=== PATIENT | female | born 1965 | race American Indian/Alaskan Native ===

== ENCOUNTER 2017-06-06 22:05 | Emergency (ER) | payer SELFPAY ==
[2017-06-06] MEDS ORDERED: DELTASONE PO ONE (22:47)
[2017-06-06] MEDS ORDERED: VIBRAMYCIN PO ONE (22:47)
--- NOTE | 2017-06-06 23:30 | Emergency Department Report ---
ED Shortness of Breath HPI - General Chief Complaint: Adult Asthma Stated Complaint: ASTHMA Time Seen by Provider: 06/06/17 22:43 Source: patient, EMS Mode of arrival: Stretcher Limitations: No Limitations - History of Present Illness Initial Comments: Ms. Perkins is a very pleasant 51-year-old female with history of asthma. Last hospitalization October 2016 in [facility] her previous place of residence. She states that she has a severe asthma attack only 1-2 times per year mostly associated with weather change. She does smoke tobacco. She works in a mall. She was exposed to perfume which triggered her asthma. She received thrombolytic therapy per EMS. She feels well at this time. She had mild cough. She also had wheezing. All symptoms have improved. No previous history of intubation. No other medical illnesses. She did run out of albuterol and Flovent. Due to lack of insurance, she is unable to afford Flovent. MD Complaint: shortness of breath, cough -: Gradual Severity: mild Improves With: bronchodilators Known History Of: asthma Associated Symptoms: denies other symptoms Treatments Prior to Arrival: bronchodilator - Related Data Home Oxygen Therapy: No Home Medications Medication Instructions Recorded Confirmed Last Taken ALBUTEROL Inhaler 2 puff IH Q4H 06/06/17 06/06/17 Unknown Previous Rx's Medication Instructions Recorded Last Taken Type ALBUTEROL Inhaler [ProAir HFA 2 puff IH QID PRN #1 inhalation 06/06/17 Unknown Rx Inhaler] Doxycycline Hyclate [Doxycycline 100 mg PO Q12HR 10 Days #20 tab 06/06/17 Unknown Rx Hyclate TAB] Fluticasone (Nf) [Flovent 220 2 puff IH BID #1 puff 06/06/17 Unknown Rx MCG/PUFF HFA] Loratadine 10 mg PO DAILY #30 capsule 06/06/17 Unknown Rx predniSONE [Deltasone] 3 tab PO QDAY 5 Days #15 tab 06/06/17 Unknown Rx Allergies Allergy/AdvReac Type Severity Reaction Status Date / Time No Known Allergies Allergy Unverified 06/06/17 22:31 ED Review of Systems ROS: Stated complaint: ASTHMA Other details as noted in HPI Comment: All other systems reviewed and negative Respiratory: denies: cough Cardiovascular: denies: chest pain ED Past Medical Hx - Past Medical History Hx Asthma: Yes - Surgical History Additional Surgical History: Hysterectomy, Tubal Ligation, Right Achilles - Social History Smoking Status: Never Smoker Substance Use Type: None - Medications Home Medications: Home Medications Medication Instructions Recorded Confirmed Last Taken Type ALBUTEROL Inhaler 2 puff IH Q4H 06/06/17 06/06/17 Unknown History ALBUTEROL Inhaler [ProAir HFA 2 puff IH QID PRN #1 inhalation 06/06/17 Unknown Rx Inhaler] Doxycycline Hyclate [Doxycycline 100 mg PO Q12HR 10 Days #20 tab 06/06/17 Unknown Rx Hyclate TAB] Fluticasone (Nf) [Flovent 220 2 puff IH BID #1 puff 06/06/17 Unknown Rx MCG/PUFF HFA] Loratadine 10 mg PO DAILY #30 capsule 06/06/17 Unknown Rx predniSONE [Deltasone] 3 tab PO QDAY 5 Days #15 tab 06/06/17 Unknown Rx ED Physical Exam - General Limitations: No Limitations General appearance: alert, in no apparent distress - Head Head exam: Present: atraumatic, normocephalic - Eye Eye exam: Present: normal appearance - ENT ENT exam: Present: mucous membranes moist - Neck Neck exam: Present: normal inspection - Respiratory Respiratory exam: Present: normal lung sounds bilaterally. Absent: respiratory distress, wheezes, rales, rhonchi, chest wall tenderness, accessory muscle use, decreased breath sounds, prolonged expiratory - Cardiovascular Cardiovascular Exam: Present: regular rate, normal rhythm, normal heart sounds. Absent: systolic murmur, diastolic murmur, rubs, gallop - GI/Abdominal GI/Abdominal exam: Present: soft, normal bowel sounds. Absent: distended, tenderness, guarding, rebound - Extremities Exam Extremities exam: Present: normal inspection - Back Exam Back exam: Present: normal inspection - Neurological Exam Neurological exam: Present: alert, oriented X3 - Psychiatric Psychiatric exam: Present: normal affect, normal mood - Skin Skin exam: Present: warm, dry, intact, normal color. Absent: rash ED Course Vital Signs 06/06/17 06/06/17 22:26 23:05 Temperature 98.4 F Pulse Rate 82 Respiratory 18 Rate Blood Pressure 152/82 O2 Sat by Pulse 98 Oximetry ED Medical Decision Making - Medical Decision Making Ms. Rosales presents with mild asthma exacerbation. On pulmonary examination patient had clear breath sounds. No wheezing. No work of breathing or respiratory distress. Patient felt well after receiving nebulizer therapy via EMS. . She Received Prednisone and Doxycycline in the ED. Antibotics indicated indicated with history of tobacco use and possible COPD. She received a prescription for prednisone, Flovent, doxycycline, loratadine Albuterol. Critical care attestation.: If time is entered above; I have spent that time in minutes in the direct care of this critically ill patient, excluding procedure time. ED Disposition Clinical Impression: Acute asthma exacerbation Disposition: DC- TO HOME OR SELFCARE Is pt being admited?: No Does the pt Need Aspirin: No Condition: Stable Instructions: Asthma (ED), How to Stop Smoking (ED) Prescriptions: ALBUTEROL Inhaler [ProAir HFA Inhaler] 2 puff IH QID PRN #1 inhalation PRN Reason: Shortness Of Breath Doxycycline Hyclate [Doxycycline Hyclate TAB] 100 mg PO Q12HR 10 Days #20 tab Fluticasone (Nf) [Flovent 220 MCG/PUFF HFA] 2 puff IH BID #1 puff Loratadine 10 mg PO DAILY #30 capsule predniSONE [Deltasone] 3 tab PO QDAY 5 Days #15 tab Forms: Work/School Release Form(ED) Time of Disposition: 23:33
[2017-06-07 00:06] VITALS: BP 146/78
== END 2017-06-07 00:06 | disposition home or self-care (01) ==
LOC: ED 22:05
DX: J45.901 Unspecified asthma with (acute) exacerbation (principal)
CPT/HCPCS: 99283; J7512

== ENCOUNTER 2019-04-09 01:14 | Emergency (ER) | payer SELFPAY ==
[2019-04-09] MEDS ORDERED: IPRATROPIUM 0.02% NEBU 2.5 ML IH ONE (01:17)
[2019-04-09] MEDS ORDERED: ALBUTEROL 2.5 MG/3 ML NEBU IH ONE (01:17)
--- NOTE | 2019-04-09 01:53 | XRay Report ---
CHEST 1 VIEW INDICATION: resp distress. COMPARISON: 01/28/2018 FINDINGS: Support devices: None. Heart: Normal. Lungs/Pleura: Inhomogeneous density projecting over the medial right upper lung may be artifactual gi dunia slight patient rotation. Lung estrada are otherwise clear. No pleural abnormality. IMPRESSION: 1. Nonspecific ill-defined density projecting over the medial right upper lobe. This could be right u pper lobe atelectasis or infiltrate. Less likely, this could be artifact given slight patient rotatio n. CT would be useful to better characterize this. Signer Name: Aurelio Malik MD Signed: 04/09/2019 1:49 AM Workstation Name: [id number]
[2019-04-09 02:12] LABS: Basophils % (Auto) 0.4 % (0.0-1.8); Eosinophils # (Auto) 0.2 K/mm3 (0.0-0.4); Eosinophils % (Auto) 2.5 % (0.0-4.3); Hematocrit 38.7 % (30.3-42.9); Hemoglobin 12.5 gm/dl (10.1-14.3); Lymphocytes # (Auto) 1.4 K/mm3 (1.2-5.4); Lymphocytes % (Auto) 16.4 % (13.4-35.0); Mean Corpuscular HGB Conc 32 % (30-34); Mean Corpuscular Volume 85 fl (79-97); Monocytes # (Auto) 0.4 K/mm3 (0.0-0.8); Monocytes % (Auto) 4.4 % (0.0-7.3); Platelet Count 204 K/mm3 (140-440); Red Blood Count 4.57 M/mm3 (3.65-5.03); Red Cell Distribution Width 14.3 % (13.2-15.2)
[2019-04-09 02:32] LABS: BUN/Creatinine Ratio 11; Blood Urea Nitrogen 8 mg/dL (7-17); Calcium 9.3 mg/dL (8.4-10.2); Hemolysis Index 4
[2019-04-09 03:41] VITALS: BP 146/67
--- NOTE | 2019-04-09 04:44 | Emergency Department Report ---
ED Shortness of Breath HPI - General Chief Complaint: Dyspnea/Respdistress Stated Complaint: EMMA Time Seen by Provider: 04/09/19 01:22 Source: patient, EMS Mode of arrival: Stretcher Limitations: No Limitations - History of Present Illness Initial Comments: Patient is a 53-year-old F Citizen Of The [place] female with a past medical history of asthma and hypertension who is presenting with cough and increased shortness of breath for the last 2 days. Patient states she does not have her albuterol inhaler at home. She denies fevers or chills. Patient states the cough is nonproductive. She denies nausea vomiting diarrhea at this time. - Related Data Previous Rx's Medication Instructions Recorded Last Taken Type ALBUTEROL NEB's [Proventil 0.083% 2.5 mg IH TID PRN #30 neb 01/28/18 Unknown Rx NEBS] Albuterol Sulfate [Ventolin HFA] 2 puff IH Q4H PRN #1 hfa.aer.ad 01/28/18 Unknown Rx predniSONE [Deltasone] 40 mg PO QDAY 5 Days tab 01/28/18 Unknown Rx ALBUTEROL NEB's [Proventil 0.083% 5 mg IH TID PRN #20 neb 04/09/19 Unknown Rx NEBS] Albuterol INH(or & Nicu Only) 2 puff IH QID PRN #1 inhalation 04/09/19 Unknown Rx [ProAir HFA Inhaler] Azithromycin [Zithromax Z-DENNIS] 250 mg PO DAILY #6 tablet 04/09/19 Unknown Rx Benzonatate [Tessalon Perles] 100 mg PO Q8HR #10 capsule 04/09/19 Unknown Rx predniSONE [Deltasone] 20 mg PO QDAY #5 tab 04/09/19 Unknown Rx Allergies Allergy/AdvReac Type Severity Reaction Status Date / Time No Known Allergies Allergy Unverified 06/06/17 22:31 ED Review of Systems ROS: Stated complaint: EMMA Other details as noted in HPI Comment: All other systems reviewed and negative ED Past Medical Hx - Past Medical History Hx Asthma: Yes - Surgical History Additional Surgical History: Hysterectomy, Tubal Ligation, Right Achilles - Social History Smoking Status: Current Some Day Smoker Substance Use Type: None - Medications Home Medications: Home Medications Medication Instructions Recorded Confirmed Last Taken Type ALBUTEROL NEB's [Proventil 0.083% 2.5 mg IH TID PRN #30 neb 01/28/18 Unknown Rx NEBS] Albuterol Sulfate [Ventolin HFA] 2 puff IH Q4H PRN #1 hfa.aer.ad 01/28/18 Unknown Rx predniSONE [Deltasone] 40 mg PO QDAY 5 Days tab 01/28/18 Unknown Rx ALBUTEROL NEB's [Proventil 0.083% 5 mg IH TID PRN #20 neb 04/09/19 Unknown Rx NEBS] Albuterol INH(or & Nicu Only) 2 puff IH QID PRN #1 inhalation 04/09/19 Unknown Rx [ProAir HFA Inhaler] Azithromycin [Zithromax Z-DENNIS] 250 mg PO DAILY #6 tablet 04/09/19 Unknown Rx Benzonatate [Tessalon Perles] 100 mg PO Q8HR #10 capsule 04/09/19 Unknown Rx predniSONE [Deltasone] 20 mg PO QDAY #5 tab 04/09/19 Unknown Rx ED Physical Exam - General Limitations: No Limitations General appearance: alert, in distress (standing zachary tripod position leaning over bed) - Head Head exam: Present: atraumatic, normocephalic - Eye Eye exam: Present: normal appearance - ENT ENT exam: Present: mucous membranes moist - Neck Neck exam: Present: normal inspection - Respiratory Respiratory exam: Present: respiratory distress, wheezes. Absent: normal lung sounds bilaterally, rales, rhonchi - Cardiovascular Cardiovascular Exam: Present: regular rate, normal rhythm, normal heart sounds. Absent: systolic murmur, diastolic murmur, rubs, gallop - GI/Abdominal GI/Abdominal exam: Present: soft, normal bowel sounds. Absent: distended, tenderness, guarding, rebound - Extremities Exam Extremities exam: Present: normal inspection - Back Exam Back exam: Present: normal inspection - Neurological Exam Neurological exam: Present: alert, oriented X3 - Psychiatric Psychiatric exam: Present: normal affect, normal mood - Skin Skin exam: Present: warm, dry, intact, normal color. Absent: rash ED Course Vital Signs 04/09/19 04/09/19 04/09/19 01:20 01:24 01:25 Temperature 97.5 F L Pulse Rate 92 H Pulse Rate [ 96 H Bilateral] Respiratory Rate Respiratory 26 H Rate [Bilateral ] Blood Pressure 199/105 Blood Pressure [Left] O2 Sat by Pulse 93 Oximetry 04/09/19 03:41 Temperature Pulse Rate 101 H Pulse Rate [ Bilateral] Respiratory 20 Rate Respiratory Rate [Bilateral ] Blood Pressure Blood Pressure 146/67 [Left] O2 Sat by Pulse 100 Oximetry ED Medical Decision Making - Lab Data Result diagrams: 04/09/19 01:44 04/09/19 01:44 Lab Results 04/09/19 04/09/19 Range/Units 01:44 01:44 WBC 8.3 (4.5-11.0) K/mm3 RBC 4.57 (3.65-5.03) M/mm3 Hgb 12.5 (10.1-14.3) gm/dl Hct 38.7 (30.3-42.9) % MCV 85 (79-97) fl MCH 27 L (28-32) pg MCHC 32 (30-34) % RDW 14.3 (13.2-15.2) % Plt Count 204 (140-440) K/mm3 Lymph % (Auto) 16.4 (13.4-35.0) % Bladen % (Auto) 4.4 (0.0-7.3) % Eos % (Auto) 2.5 (0.0-4.3) % Baso % (Auto) 0.4 (0.0-1.8) % Lymph # 1.4 (1.2-5.4) K/mm3 Bladen # 0.4 (0.0-0.8) K/mm3 Eos # 0.2 (0.0-0.4) K/mm3 Baso # 0.0 (0.0-0.1) K/mm3 Seg Neutrophils % 76.3 H (40.0-70.0) % Seg Neutrophils # 6.3 (1.8-7.7) K/mm3 Sodium 143 (137-145) mmol/L Potassium 3.5 L (3.6-5.0) mmol/L Chloride 104.6 (98-107) mmol/L Carbon Dioxide 21 L (22-30) mmol/L Anion Gap 21 mmol/L BUN 8 (7-17) mg/dL Creatinine 0.7 (0.7-1.2) mg/dL Estimated GFR > 60 ml/min BUN/Creatinine Ratio 11 % Glucose 129 H (65-100) mg/dL Calcium 9.3 (8.4-10.2) mg/dL NT-Pro-B Natriuret Pep 88.14 (0-900) pg/mL - Radiology Data CHEST 1 VIEW INDICATION: resp distress. COMPARISON: 01/28/2018 FINDINGS: Support devices: None. Heart: Normal. Lungs/Pleura: Inhomogeneous density projecting over the medial right upper lung may be artifactual given slight patient rotation. Lung estrada are otherwise clear. No pleural abnormality. IMPRESSION: 1. Nonspecific ill-defined density projecting over the medial right upper lobe. This could be right upper lobe atelectasis or infiltrate. Less likely, this could be artifact given slight patient rotation. CT would be useful to better characterize this. - Medical Decision Making Patient received a Solu-Medrol and magnesium prior to arrival. Patient is continued here with hour-long neb treatment. Patient is has had improvement of her respiratory status. Lungs are clear she states she feels much better. Patient will be given albuterol nebs as well as albuterol inhaler for home and be started on a short course of steroids with azithromycin. Critical Care Time: Yes (30) Critical care attestation.: If time is entered above; I have spent that time in minutes in the direct care of this critically ill patient, excluding procedure time. ED Disposition Clinical Impression: COPD with exacerbation Disposition: DC-01 TO HOME OR SELFCARE Is pt being admited?: No Does the pt Need Aspirin: No Condition: Stable Instructions: Chronic Obstructive Pulmonary Disease (ED) Referrals: PRIMARY CARE, [Primary Care Provider] - 3-5 Days Time of Disposition: 04:42
== END 2019-04-09 05:43 | disposition home or self-care (01) ==
LOC: ED 01:14
DX: J44.1 Chronic obstructive pulmonary disease with (acute) exacerbation (principal)
CPT/HCPCS: 36415; 71045; 80048; 83880; 85025; 94644

== ENCOUNTER 2020-07-02 19:44 | Emergency (ER) | payer SELFPAY ==
[2020-07-02 20:28] VITALS: BP 183/109
--- NOTE | 2020-07-02 20:32 | Emergency Department Report ---
ED Back Pain/Injury HPI - General Chief Complaint: Extremity Problem,Nontraumatic Stated Complaint: LT LEG PAIN Source: patient Limitations: No Limitations - History of Present Illness Initial Comments: Patient is a 54-year-old -[place] female with a history of asthma presents to the ED with complaint of acute onset persistent severe low back pain that radiates to the left leg for the last 2 weeks, worse in the last 2 days. Patient states that she has been taking [id number] pain medications with no relief. Patient states that in the last 2 weeks, she has had 2 episodes of losing balance when the pain shoots to the left leg and fell down. Patient states that the last time she fell down was 3 days ago. Patient denies dizziness, syncope, urinary retention, bowel incontinence, saddle paresthesia, dysuria, urinary frequency and urgency, dysuria, chest pain, shortness of breath, neck pain, head or neck injuries, abdominal pain, hematuria, numbness and tingling or weakness of lower extremities bilaterally or change in vision. MD Complaint: back pain, other (LOWER BACK PAIN RADIATING TO LEFT LEG) -: Sudden, week(s) (2) Similar Symptoms Previously: No Radiation: left leg Severity: severe Severity scale (0 -10): 8 Quality: sharp, aching Consistency: constant Improves With: none Worsens With: movement, sitting upright, walking Context: turning/twisting, fall Associated Symptoms: denies other symptoms. denies: confusion, weakness, chest pain, numbness, difficulty walking, cough, difficulty urinating, diaphoresis, incontinence, fever/chills, constipation, headaches, abdominal pain, loss of appetite, malaise, nausea/vomiting, seizure, shortness of breath, syncope - Related Data Previous Rx's Medication Instructions Recorded Last Taken Type ALBUTEROL NEB's [Proventil 0.083% 2.5 mg IH TID PRN #30 neb 01/28/18 Unknown Rx NEBS] Albuterol Sulfate [Ventolin HFA] 2 puff IH Q4H PRN #1 hfa.aer.ad 01/28/18 Unknown Rx predniSONE [Deltasone] 40 mg PO QDAY 5 Days tab 01/28/18 Unknown Rx ALBUTEROL NEB's [Proventil 0.083% 5 mg IH TID PRN #20 neb 04/09/19 Unknown Rx NEBS] Albuterol Mdi (or & Nicu Only) 2 puff IH QID PRN #1 inhalation 04/09/19 Unknown Rx [ProAir HFA Inhaler] Azithromycin [Zithromax Z-DENNIS] 250 mg PO DAILY #6 tablet 04/09/19 Unknown Rx Benzonatate [Tessalon Perles] 100 mg PO Q8HR #10 capsule 04/09/19 Unknown Rx predniSONE [Deltasone] 20 mg PO QDAY #5 tab 04/09/19 Unknown Rx Baclofen 20 mg PO Q12H PRN #30 tablet 07/02/20 Unknown Rx Naproxen 500 mg PO Q12H PRN #30 tablet 07/02/20 Unknown Rx Prednisone [predniSONE 10 mg 10 mg PO .TAPER #21 tab.ds.pk 07/02/20 Unknown Rx (6-Day Pack, 21 Tabs)] traMADoL [Ultram] 50 mg PO Q6HR PRN #12 tablet 07/02/20 Unknown Rx Allergies Allergy/AdvReac Type Severity Reaction Status Date / Time No Known Allergies Allergy Unverified 06/06/17 22:31 ED Review of Systems ROS: Stated complaint: LT LEG PAIN Other details as noted in HPI Constitutional: denies: chills, fever Eyes: denies: eye pain, eye discharge, vision change ENT: denies: ear pain, throat pain Respiratory: denies: cough, shortness of breath, wheezing Cardiovascular: denies: chest pain, palpitations Endocrine: no symptoms reported Gastrointestinal: denies: abdominal pain, nausea, vomiting, diarrhea Genitourinary: denies: urgency, dysuria, discharge Musculoskeletal: back pain (lower back), arthralgia (left hip, left knee ). denies: joint swelling, myalgia, other Skin: denies: rash, lesions Neurological: denies: headache, weakness, paresthesias Psychiatric: denies: anxiety, depression Hematological/Lymphatic: denies: easy bleeding, easy bruising ED Past Medical Hx - Past Medical History Hx Asthma: Yes - Surgical History Additional Surgical History: Hysterectomy, Tubal Ligation, Right Achilles - Social History Smoking Status: Current Every Day Smoker Substance Use Type: None - Medications Home Medications: Home Medications Medication Instructions Recorded Confirmed Last Taken Type ALBUTEROL NEB's [Proventil 0.083% 2.5 mg IH TID PRN #30 neb 01/28/18 Unknown Rx NEBS] Albuterol Sulfate [Ventolin HFA] 2 puff IH Q4H PRN #1 hfa.aer.ad 01/28/18 Unknown Rx predniSONE [Deltasone] 40 mg PO QDAY 5 Days tab 01/28/18 Unknown Rx ALBUTEROL NEB's [Proventil 0.083% 5 mg IH TID PRN #20 neb 04/09/19 Unknown Rx NEBS] Albuterol Mdi (or & Nicu Only) 2 puff IH QID PRN #1 inhalation 04/09/19 Unknown Rx [ProAir HFA Inhaler] Azithromycin [Zithromax Z-DENNIS] 250 mg PO DAILY #6 tablet 04/09/19 Unknown Rx Benzonatate [Tessalon Perles] 100 mg PO Q8HR #10 capsule 04/09/19 Unknown Rx predniSONE [Deltasone] 20 mg PO QDAY #5 tab 04/09/19 Unknown Rx Baclofen 20 mg PO Q12H PRN #30 tablet 07/02/20 Unknown Rx Naproxen 500 mg PO Q12H PRN #30 tablet 07/02/20 Unknown Rx Prednisone [predniSONE 10 mg 10 mg PO .TAPER #21 tab.ds.pk 07/02/20 Unknown Rx (6-Day Pack, 21 Tabs)] traMADoL [Ultram] 50 mg PO Q6HR PRN #12 tablet 07/02/20 Unknown Rx ED Physical Exam - General Limitations: No Limitations General appearance: alert, in no apparent distress - Head Head exam: Present: atraumatic, normocephalic, normal inspection - Eye Eye exam: Present: normal appearance, PERRL, EOMI Pupils: Present: normal accommodation - ENT ENT exam: Present: normal exam, normal orophraynx, mucous membranes moist, TM's normal bilaterally, normal external ear exam - Neck Neck exam: Present: normal inspection, full ROM - Respiratory Respiratory exam: Present: normal lung sounds bilaterally. Absent: respiratory distress, wheezes, rales, rhonchi, chest wall tenderness, accessory muscle use, decreased breath sounds, prolonged expiratory - Cardiovascular Cardiovascular Exam: Present: regular rate, normal rhythm, normal heart sounds. Absent: systolic murmur, diastolic murmur, rubs, gallop - GI/Abdominal GI/Abdominal exam: Present: soft, normal bowel sounds. Absent: tenderness, guarding, rebound, hyperactive bowel sounds, hypoactive bowel sounds, organomegaly - Extremities Exam Extremities exam: Present: normal inspection, tenderness (Palpable left knee and hip tenderness), normal capillary refill - Back Exam Back exam: Present: normal inspection, full ROM, tenderness (Palpable lumbosacral paraspinal musculoskeletal tenderness), muscle spasm, paraspinal tenderness. Absent: CVA tenderness (R), CVA tenderness (L), vertebral tendernes s - Neurological Exam Neurological exam: Present: alert, oriented X3, CN II-XII intact, normal gait, reflexes normal - Psychiatric Psychiatric exam: Present: normal affect, normal mood - Skin Skin exam: Present: warm, dry, intact, normal color. Absent: rash ED Course Vital Signs 07/02/20 20:24 Temperature 98.3 F Pulse Rate 100 H Respiratory 16 Rate Blood Pressure 183/109 O2 Sat by Pulse 100 Oximetry ED Medical Decision Making - Medical Decision Making This is a 54-year-old -[place] female with a history of asthma presents to the ED with complaint of acute onset persistent severe low back pain that radiates to the left leg for the last 2 weeks, worse in the last 2 days. Patient states that she has been taking swiq-jjg-ivjoddt pain medications with no relief. Patient states that in the last 2 weeks, she has had 2 episodes of losing balance when the pain shoots to the left leg and fell down. Patient states that the last time she fell down was 3 days ago. In the ED, patient is alert and oriented x3 and is not in distress. Patient however appears to be in significant pain. Patient was treated for pain in the ED based on the history and physical exam findings suspected to be due to muscle spasm of lower back versus acute low back pain with sciatica. On reevaluation, patient's pain is well controlled medications. Patient hemodynamically stable, alert and oriented x3. Patient is fully ambulatory in the ED. Patient was discharged home on pain medications and muscle relaxants and advised to follow-up with her primary care physician in 5 to 7 days for reevaluation. Patient is advised to return to the ED immediately if symptoms get worse. - Differential Diagnosis Muscle spasm; sciatica; back injury; muscle strain; Critical care attestation.: If time is entered above; I have spent that time in minutes in the direct care of this critically ill patient, excluding procedure time. ED Disposition Clinical Impression: Spasm of muscle of lower back Acute low back pain with left-sided sciatica Qualifiers: Back pain laterality: left Qualified Code(s): M54.42 - Lumbago with sciatica, left side Disposition: TO HOME OR SELFCARE Is pt being admited?: No Does the pt Need Aspirin: No Condition: Stable Instructions: Muscle Cramps and Spasms, [id number], Sciatica, [id number] Additional Instructions: Your symptoms appear to be due to muscle spasms of your lower back and sciatica (nerve impingements on your back) radiating to your left leg. Take medications with food, drink plenty of fluids and follow up with your Primary Care Physician in 7-10 days for reevaluation. Return to the ED immediately if symptoms get worse. Prescriptions: Baclofen 20 mg PO Q12H PRN #30 tablet PRN Reason: Muscle Spasm Naproxen 500 mg PO Q12H PRN #30 tablet PRN Reason: Pain , Severe (7-10) Prednisone [predniSONE 10 mg (6-Day Pack, 21 Tabs)] 10 mg PO .TAPER #21 tab.ds.pk traMADoL [Ultram] 50 mg PO Q6HR PRN #12 tablet PRN Reason: Pain Referrals: [facility] [Provider Group] - 3-5 Days Time of Disposition: 20:37 Print Language: LATVIAN
[2020-07-02] MEDS ORDERED: predniSONE 20 MG TAB PO ONE (20:37)
[2020-07-02] MEDS ORDERED: oxyCODONE /ACETAMINOPHEN 5-325MG TAB PO ONE (20:37)
[2020-07-02] MEDS ORDERED: IBUPROFEN 600 MG TAB PO ONE ×2 (20:37→22:44)
[2020-07-02] MEDS ORDERED: ONDANSETRON 4 MG ODT TAB PO ONE (20:37)
[2020-07-02] MEDS ORDERED: oxyCODONE /ACETAMINOPHEN 5-325MG TAB ONE (22:40)
[2020-07-02] MEDS ORDERED: ONDANSETRON 4 MG ODT TAB ONE (22:43)
[2020-07-02] MEDS ORDERED: predniSONE 20 MG TAB ONE (22:44)
== END 2020-07-02 22:54 | disposition home or self-care (01) ==
LOC: ED 19:44
DX: M54.42 Lumbago with sciatica, left side (principal); M62.830 Muscle spasm of back; F17.200 Nicotine dependence, unspecified, uncomplicated; J45.909 Unspecified asthma, uncomplicated; Z98.51 Tubal ligation status; Z79.899 Other long term (current) drug therapy; Z90.710 Acquired absence of both cervix and uterus
CPT/HCPCS: 99282; J7512; Q0162